=== PATIENT | male | born 1955 | race Caucasian/White ===

== ENCOUNTER 2018-02-07 05:08 | Emergency (ER) | payer OTHER ==
[~2018-02-07] VITALS: Ht 188 cm; Wt 98.0 kg
[2018-02-07] MEDS ORDERED: LISINOPRIL10 MG PO (05:16)
[2018-02-07] MEDS ORDERED: OMEPRAZOLE (05:16)
[2018-02-07 05:26] LABS: URINE BILIRUBIN NEGATIVE (Negative); URINE BLOOD TRACE (Negative); URINE CLARITY CLEAR; URINE COLOR YELLOW; URINE GLUCOSE-RANDOM NEGATIVE (Negative); URINE KETONES NEGATIVE (Negative); URINE LEUKOCYTES-REFLEX NEGATIVE (Negative); URINE NITRITE-REFLEX NEGATIVE (Negative); URINE PROTEIN NEGATIVE (Negative); URINE SPECIFIC GRAVITY >= 1.030 (1.005-1.030); URINE UROBILINOGEN 0.2 E.U./dl (0.2-1.0)
[2018-02-07 05:36] LABS: ABSOLUTE LYMPHOCYTES 1.2 thou/uL (0.8-5.3); ABSOLUTE MONOCYTES 0.3 thou/uL (0.0-1.2); ABSOLUTE NEUTROPHILS 8.7 thou/uL (1.6-8.1); BASOPHILS 0.3 %; EOSINOPHILS 0.1 %; HEMATOCRIT 50.1 % (42.0-52.0); HEMOGLOBIN 16.9 gm/dL (14.0-18.0); LYMPHOCYTES 11.8 %; MCH 31.4 pg (26.0-34.0); MCHC 33.8 g/dL (28.0-37.0); MCV 93.1 fL (80.0-100.0); MONOCYTES 3.3 %; MPV 8.4 fl. (7.2-11.1); NUCLEATED RBCS 0 /100WBC; PLATELET COUNT* 164 thou/uL (150-400); POLYS 84.5 %; RBC 5.38 mil/uL (4.50-6.00); RDW-CV 13.6 % (10.5-14.5); WBC 10.3 thou/uL (4.0-11.0)
[2018-02-07 05:47] LABS: ANION GAP 8 mmol/L (7-16); BUN 17 mg/dL (7-18); CALCIUM 9.6 mg/dL (8.5-10.1); CHLORIDE 105 mmol/L (98-107); CO2 29 mmol/L (21-32); CREATININE 1.3 mg/dL (0.6-1.3); GLUCOSE 181 mg/dL (70-99); POTASSIUM 3.7 mmol/L (3.5-5.1); SODIUM 142 mmol/L (136-145)
[2018-02-07 05:53] LABS: AMP/METHAMP Negative (Negative); BARBITURATES Negative (Negative); BENZODIAZEPINES Negative (Negative); COCAINE Negative (Negative); METHADONE Negative (Negative); OPIATES Negative (Negative); PCP Negative (Negative); THC Negative (Negative)
[2018-02-07 05:53] LABS: ALBUMIN 3.7 g/dL (3.4-5.0); ALKALINE PHOSPHATASE 87 U/L (46-116); LIPASE 75 U/L (73-393); SGOT 19 U/L (15-37); SGPT 38 U/L (30-65); TOTAL BILIRUBIN 0.9 mg/dL (<0.1-1.0); TOTAL PROTEIN 7.4 g/dL (6.4-8.2); TROPONIN-I LEVEL <0.06 ng/mL (<0.06)
[2018-02-07] MEDS ORDERED: CARAFATE 1 GM TA1 GM PO (07:58)
[2018-02-07 08:22] VITALS: BP 159/104
--- NOTE | 2018-02-07 14:25 | EKG ---
[place] [address] ELECTROCARDIOGRAM REPORT Name: GORDON CANTRELL Room: [facility]#: [id number] Admission: 02/07/18 Attend Phys: Discharge: 02/07/18 Date of : 57 Report #: [id number] THIS REPORT FOR: //name// [facility] ED Test Date: 2018-02-07 Test Time: 05:48:05 Pat Name: GORDON CANTRELL Department: Room: Gender: M Photography Intern: ALICIA : 1955 Requested By: Hieu Kirkland Order Number: [id number] MD: Darius Man Measurements Intervals [place] Rate: 44 P: 13 DC: 157 QRS: -41 QRSD: 116 T: 7 QT: 483 QTc: 414 Interpretive Statements Sinus bradycardia Left anterior fascicular block Left ventricular hypertrophy No previous ECG available for comparison Electronically Signed On 02-07-2018 14:25:04 CDT by Darius Man [email or web address] <ELECTRONICALLY SIGNED> By: Darius Man MD, [facility] 02/07/18 1425 0548 0548 Darius Man MD, FACC /EPI
[2018-03-09] MEDS ORDERED: OMEPRAZOLE40 MG PO (12:05)
[2018-03-18] MEDS ORDERED: PERCOCET PO (14:16)
[2018-03-18] MEDS ORDERED: PERCOCET 5-3251 EACH PO (15:30)
== END 2018-02-07 08:22 | disposition home or self-care (01) ==
LOC: M.ERS 05:08
PROVIDERS: Emergency Medicine Emergency Medical Services
DX: K20.9 Esophagitis, unspecified (principal); I10 Essential (primary) hypertension; Z88.1 Allergy status to other antibiotic agents

== ENCOUNTER 2018-02-10 10:08 | Inpatient (IN) | payer OTHER ==
[~2018-02-10] VITALS: Ht 188 cm; Wt 98.0 kg
[~2018-02-10 10:08] MED LIST: CARAFATE 1 GM TA1 GM PO; LISINOPRIL10 MG PO; OMEPRAZOLE
[2018-02-10 10:15] VITALS: BP 135/80
--- NOTE | 2018-02-10 11:53 | EKG ---
[place] [address] ELECTROCARDIOGRAM REPORT Name: GORDON CANTRELL Room: [address] ADM IN M.R.#: [id number] Admission: 02/10/18 Attend Phys: Kendall Enriquez Discharge: Date of : 57 Report #: [id number] THIS REPORT FOR: //name// [facility] Test Date: 2018-02-10 Test Time: 11:18:44 Pat Name: GORDON CANTRELL Department: Room: [address] Gender: M Compliance Manager: 28 : 1955 Requested By: Elvin Flores Order Number: [id number] Reading MD: Walter Beltran Measurements Intervals [place] Rate: 97 P: 37 CO: 141 QRS: -57 QRSD: 99 T: 51 QT: 349 QTc: 444 Interpretive Statements Sinus rhythm Left anterior fascicular block Abnormal R-wave progression, late transition Left ventricular hypertrophy Compared to ECG 02/07/2018 05:48:05 Sinus bradycardia no longer present Electronically Signed On 02-10-2018 11:52:58 CDT by Walter Beltran [email or web address] <ELECTRONICALLY SIGNED> By: Walter Beltran MD, FAC 02/10/18 1152 1118 1118 Walter Beltran MD, FAC /EPI
[2018-02-10 12:26] LABS: HEMATOCRIT 49.1 % (42.0-52.0); HEMOGLOBIN 16.7 gm/dL (14.0-18.0); MCH 31.9 pg (26.0-34.0); MCHC 33.9 g/dL (28.0-37.0); MCV 93.9 fL (80.0-100.0); NUCLEATED RBCS 0 /100WBC; PLATELET COUNT* 153 thou/uL (150-400); RBC 5.23 mil/uL (4.50-6.00); RDW-CV 13.5 % (10.5-14.5); WBC 19.9 thou/uL (4.0-11.0)
[2018-02-10 12:27] LABS: URINE BLOOD TRACE (Negative); URINE CLARITY CLEAR; URINE COLOR YELLOW; URINE GLUCOSE-RANDOM NEGATIVE (Negative); URINE KETONES NEGATIVE (Negative); URINE LEUKOCYTES-REFLEX NEGATIVE (Negative); URINE NITRITE-REFLEX NEGATIVE (Negative); URINE PROTEIN 1+ (Negative); URINE SPECIFIC GRAVITY >= 1.030 (1.005-1.030); URINE UROBILINOGEN 0.2 E.U./dl (0.2-1.0)
[2018-02-10 12:33] LABS: ICTOTEST (BILI CONFIRMATORY) Negative (Negative); URINE BILIRUBIN 1+ (Negative)
[2018-02-10 12:40] LABS: ALBUMIN 3.3 g/dL (3.4-5.0); CALCIUM 9.3 mg/dL (8.5-10.1); CREATININE 1.2 mg/dL (0.6-1.3); MAGNESIUM 2.1 mg/dL (1.8-2.4); POTASSIUM 3.7 mmol/L (3.5-5.1); TOTAL BILIRUBIN 1.7 mg/dL (<0.1-1.0); TOTAL PROTEIN 7.3 g/dL (6.4-8.2)
[2018-02-10 12:51] LABS: ABSOLUTE LYMPHOCYTES 1.4 thou/uL (0.8-5.3); ABSOLUTE MONOCYTES 1.2 thou/uL (0.0-1.2); ABSOLUTE NEUTROPHILS 17.3 thou/uL (1.6-8.1); PLATELET ESTIMATE ADEQUATE
[2018-02-10 16:30] VITALS: BP 140/88
[2018-02-10 17:37] LABS: AMYLASE 17 U/L (25-115); LIPASE 44 U/L (73-393)
--- NOTE | 2018-02-10 18:55 | NUR ---
PT RECEIVED FROM OUTPT SURGERY AT 1015. PT A&O X4, PT IN BED, BED IN LOW LOCKED POSITION. CALL BUTTON AND PERSONAL ITEMS IN PT REACH. FALL PRECAUTIONS IN PLACE. ADMISSION COMPLETED. VSS ON RA, LCTAB, ABD TENDER IN UPPER RIGHT QUADRANT. PT NPO AT MIDNIGHT FOR US OF ABD TOMORROW. CONSULTS GI, CM AND RT. PT COMPLETED AN EGD AND COLONOSCOPY THIS MORNING BUT IS ADMITTED FOR N/V, DEHYDRATION, ABD PAIN, ESOPHAGITIS. RIGHT FA 20 GAUGE IV PATENT WITH LR INFUSING AT 150 ML/HR. PT UP SBA TO BATHROOM. SKIN INTACT, PERRLA, AFEBRILE. K-PAD FOR ABD PAIN IN ROOM WITH PT. HOURLY ROUNDING CONTINUES. REPORT TO JUNIOR ASSISTANT MANAGER FOR CONTINUED CARES. FAMILY AT BEDSIDE.
[2018-02-10 20:10] VITALS: BP 113/62
--- NOTE | 2018-02-11 03:49 | NUR ---
PT IS ALERT AND ORIENTED. VSS. PERRLA. PT REPORTS SOME PAIN IN HIS ABDOMAN. NO NAUSEA REPORTED. PT IS CURRENTLY NPO FOR AN ABDOMANAL US. PT IS SLEEPING QUIETLY IN BED. RESPIRATIONS ARE EVEN AND NONLABORED. WILL CONTINUE TO MONITOR PT.
[2018-02-11 07:50] VITALS: BP 143/95
[2018-02-11 11:55] LABS: HEMATOCRIT 41.7 % (42.0-52.0); MCH 31.4 pg (26.0-34.0); MCHC 33.5 g/dL (28.0-37.0); MCV 93.7 fL (80.0-100.0); MPV 8.2 fl. (7.2-11.1); RBC 4.45 mil/uL (4.50-6.00); RDW-CV 13.7 % (10.5-14.5); WBC 11.6 thou/uL (4.0-11.0)
[2018-02-11 12:13] LABS: ALBUMIN 2.3 g/dL (3.4-5.0); CALCIUM 8.4 mg/dL (8.5-10.1); CREATININE 1.2 mg/dL (0.6-1.3); POTASSIUM 3.7 mmol/L (3.5-5.1); TOTAL PROTEIN 6.2 g/dL (6.4-8.2)
[2018-02-11 16:06] VITALS: BP 125/80
--- NOTE | 2018-02-11 17:18 | NUR ---
SW met with pt to complete initial assessment, introduce self, and SW role. Pt bedside. Pt alert and oriented. Pt lives at home with and does not anticipate any dc needs at this time. Pt said he figures it's "just gallbladder issues" and pt wants to be able to have education on what his dietary needs will be when he is ready to dc. SW to follow.
--- NOTE | 2018-02-11 19:00 | NUR ---
PT VSS STABLE THIS SHIFT. GI CAME TO SEE PT THIS SHIFT AND DISCUSSION OF PLAN OF CARE WAS HAD REGARDING SURGERY, AT THIS TIME IT IS QUESTIONED TO WHEN. PT TOLERATING FENTANYL THIS SHIFT FOR PAIN RELIEF. PT ABLE TO CALL OUT FOR AMBULATION NEEDS, BUT FAMILY IS ABLE TO AMBULATE PT FOR BATHROOM NEEDS THIS SHIFT. PT WILL BE NPO AT MIDNIGHT FOR PROCEDURE TOMORROW.
[2018-02-11 20:00] VITALS: BP 132/80
[2018-02-12 01:07] VITALS: BP 113/70
[2018-02-12 03:51] LABS: HEMATOCRIT 39.8 % (42.0-52.0); HEMOGLOBIN 13.5 gm/dL (14.0-18.0); MCH 31.4 pg (26.0-34.0); MCV 92.4 fL (80.0-100.0); MPV 8.4 fl. (7.2-11.1); RBC 4.3 mil/uL (4.50-6.00); RDW-CV 13.5 % (10.5-14.5)
[2018-02-12 04:24] LABS: ALBUMIN 2.1 g/dL (3.4-5.0); POTASSIUM 3.8 mmol/L (3.5-5.1); TOTAL BILIRUBIN 1.7 mg/dL (<0.1-1.0); TOTAL PROTEIN 5.3 g/dL (6.4-8.2)
--- NOTE | 2018-02-12 05:32 | NUR ---
ASSUMED PT CARE AT 1930, PT IS A&OX4, PT IS ON RA SATTING MID TO HIGH 90'S. PT HAS IVF INFUSING PER MAR. PT C/O PAIN THROUGHOUT THE SHIFT. PRN PAIN AND SLEEPING MEDICATIONS GIVEN PER MAR. PT IS UP WITH ONE TO THE BR, BED IN LOW POSITION, CALL LIGHT IN REACH, HOURLY ROUNDING COMPLETED FOR PT SAFETY.
[2018-02-12 08:00] VITALS: BP 130/80
--- NOTE | 2018-02-12 10:46 | CON ---
[address] [address] CONSULTATION Name: GORDON CANTRELL Room: [address] IN M.R.#: [id number] Admission: 02/10/18 Attend Phys: Kendall Enriquez Discharge: Date of : 57 Report #: [id number] THIS REPORT FOR: //name// CC: Anthony Cain DICTATED BY: Rose Shah [facility] DATE OF SERVICE: 02/10/2018 PRIMARY CARE PHYSICIAN: Krunal Raza DO Please note at the time of this dictation, the patient was seen and physically examined by myself. REASON FOR CONSULTATION: Abdominal pain, nausea and vomiting. HISTORY OF PRESENT ILLNESS: This is a 62-year-old male who has been having ongoing episodes of epigastric pain, esophageal pressure that he has noticed for the last 1-1/2 years that these symptoms have been going on. He describes these episodes last 2-3 hours at a time, sometimes relieved with ibuprofen. He has been noticing that the episodes are in the epigastric area most of the time. The patient underwent an EGD and colonoscopy for these symptoms this a.m. in which was noted to have Schatzki ring, asymptomatic, 2 cm hiatal hernia, mild erosive duodenitis, otherwise normal upper endoscopy. Colonoscopy revealed moderate sigmoid diverticulosis with moderate external hemorrhoids, otherwise normal colon with an average risk of colon cancer. He wished to be continued taking with his omeprazole 40 mg daily. The patient, because of his ongoing abdominal pain and has progressively gotten worse in which he went to the Emergency Room on Wednesday the because he was having increasing abdominal pain that showed some mild mural thickening of the distal esophagus, otherwise diverticulosis, but no other acute findings. No mention of his gallbladder is noted on his CT scan. The patient once he was admitted over here because of his ongoing abdominal pain, which was progressively getting worse to the point that he could not function, it was agreed that he be admitted for further evaluation. ALLERGIES: DOXYCYCLINE AND LEVAQUIN. MEDICATIONS: From home, omeprazole and lisinopril and some Carafate. FAMILY HISTORY: Pancreatic cancer with his father and paternal grandfather. SOCIAL HISTORY: Alcohol socially, tobacco use never [place] [address] CONSULTATION Name: GORDON CANTRELL LINDA Room: [address] IN [facility]#: [id number] Admission: 02/10/18 Attend Phys: Kendall Enriquez Discharge: Date of : 57 Report #: [id number] REVIEW OF SYSTEMS: Twelve-point review of systems is essentially negative except what is mentioned in the HPI. PHYSICAL EXAMINATION: VITAL SIGNS: Temperature 36.9, pulse 96, respirations 21, blood pressure 135/80. HEART: Regular rate and rhythm. LUNGS: Clear. ABDOMEN: Soft, positive bowel sounds in all 4 quadrants with epigastric and right upper quadrant tenderness noted to palpation. LABORATORY DATA: Sodium 142, potassium 3.7, chloride 105, CO2 of 29, BUN is 17, creatinine 1.3, GFR is 56, glucose is 181, total bilirubin is 1.7, alkaline phosphatase is 90, ALT 32, AST is 18. Hemoglobin is 16.9, hematocrit 49.1, white count is 19.9 and platelets are 153. Awaiting imaging ultrasound and PIPIDA. IMPRESSION: 1. Abdominal pain, right upper quadrant and epigastric. 2. Nausea and vomiting. 3. Leukocytosis. 4. Elevated bilirubin. 5. Erosive duodenitis. PLAN: 1. Ultrasound and CCK PIPIDA. 2. Continue omeprazole 40 mg daily. 3. Further recommendations to be made once the above have been performed and reviewed. Thank you for allowing us to participate in this patient's care. Please do not hesitate to call with any questions in regard to this consult. <ELECTRONICALLY SIGNED> By: Anthony Berg DO 02/12/18 1046 1414 2154Anthony Berg DO /nt
--- NOTE | 2018-02-12 10:46 | CON ---
[address] [address] CONSULTATION Name: GORDON CANTRELL Room: [address] IN M.R.#: [id number] Admission: 02/10/18 Attend Phys: Kendall Enriquez Discharge: Date of : 57 Report #: [id number] THIS REPORT FOR: //name// CC: Anthony Springer DO DATE OF SERVICE: 02/10/2018 REFERRING PHYSICIAN: Krunal Raza DO. I have seen and examined the patient and agreed with plan that has been outlined by our nurse practitioner, Rose Shah. HISTORY OF PRESENT ILLNESS: The patient is a pleasant 62-year-old white male who underwent upper and lower endoscopy earlier [facility] for complaints of rather severe abdominal pain associated with nausea, vomiting, and inability to advance his diet as tolerated. He has history of chronic reflux for which he takes pantoprazole with pretty good results for the same. He underwent successful upper and lower endoscopy this morning, which were unrevealing with the exception of some mild erosive duodenitis. Because the patient's inability to take much in with associated nausea, vomiting and inability to advance clear liquids, I recommend that the patient be admitted to the hospital to undergo an abdominal ultrasound, possible CCK PIPIDA scan and we will make further recommendations thereafter. I also discussed that he will need to be placed on IV pain medications, antiemetics, etc. I discussed this plan with the patient as well and he and his were agreeable to the admission. <ELECTRONICALLY SIGNED> By: Anthony Berg DO 02/12/18 1046 1513 0116Anthony Berg DO /nt
[2018-02-12 14:25] LABS: ABSOLUTE EOSINOPHILS 0.2 thou/uL (0.0-0.7); ABSOLUTE LYMPHOCYTES 1.3 thou/uL (0.8-5.3); ABSOLUTE MONOCYTES 0.7 thou/uL (0.0-1.2); BASOPHILS 0.4 %; EOSINOPHILS 1.8 %; HEMOGLOBIN 13.7 gm/dL (14.0-18.0); LYMPHOCYTES 14.3 %; MCH 32.1 pg (26.0-34.0); MCHC 34.2 g/dL (28.0-37.0); MCV 93.9 fL (80.0-100.0); MONOCYTES 7.8 %; MPV 8.6 fl. (7.2-11.1); NUCLEATED RBCS 0 /100WBC; PLATELET COUNT* 156 thou/uL (150-400); POLYS 75.7 %; RBC 4.26 mil/uL (4.50-6.00); RDW-CV 13.2 % (10.5-14.5); WBC 9.2 thou/uL (4.0-11.0)
[2018-02-12 14:38] LABS: ALBUMIN 2.2 g/dL (3.4-5.0); CALCIUM 8.5 mg/dL (8.5-10.1); CREATININE 1.1 mg/dL (0.6-1.3); POTASSIUM 3.5 mmol/L (3.5-5.1); TOTAL BILIRUBIN 1.7 mg/dL (<0.1-1.0); TOTAL PROTEIN 6.3 g/dL (6.4-8.2)
[2018-02-12 16:00] VITALS: BP 163/98
[2018-02-12 20:00] VITALS: BP 127/80
--- NOTE | 2018-02-12 21:00 | NUR ---
I ASSUMED CARE OF THE PATIENT AT 0700. HE IS ALERT AND ORIENTED X4 AND IS UP WITH STAND BY ASSIST. IS AT THE BEDSIDE. HOURLY ROUNDING WAS DONE AND PATIENT NEEDS WERE MET. CALL LIGHT IS IN REACH. BED IS IN THE LOW LOCKED POSITION. PAIN IS MANAGED WITH PRN MEDS. PATIENT HAD A SHOWER AND LINENS WERE CHANGED. MRCP WAS COMPLETED AND RESULTS WERE CALLED TO DR GUILLEN AND NEW ORDERS WERE RECEIVED. WILL CONTINUE TO MONITOR. MOST LIKELY, SURGERY WILL BE DONE ON WEDNESDAY. THEY WILL RE-EVALUATE IN THE MORNING WHILE ROUNDING. CALL DR GUILLEN IF YOU NEED ANYTHING.
--- NOTE | 2018-02-13 04:40 | NUR ---
PATIENT HAS REMAINED ALERT AND ORIENTED X 4 THROUGHOUT THE SHIFT. RESTING QUIETLY ON HOURLY ROUNDS. CLEAR LIQUIDS TO MIDNIGHT. TOLERATED WITHOUT NAUSEA. MEDICATED FOR PAIN X 2 TO GOOD EFFECT. IVF'S AND ANTIBIOTICS PER ORDERS. LOW-GRADE TEMP OF 100.0 DEGREES F. NPO AT MIDNIGHT. AT BEDSIDE. CONTINUE TO MONITOR.
[2018-02-13 05:08] LABS: ABSOLUTE EOSINOPHILS 0.2 thou/uL (0.0-0.7); ABSOLUTE LYMPHOCYTES 1.8 thou/uL (0.8-5.3); ABSOLUTE MONOCYTES 0.8 thou/uL (0.0-1.2); ABSOLUTE NEUTROPHILS 6.9 thou/uL (1.6-8.1); BASOPHILS 0.4 %; EOSINOPHILS 2.1 %; HEMATOCRIT 39.5 % (42.0-52.0); HEMOGLOBIN 13.3 gm/dL (14.0-18.0); LYMPHOCYTES 18.5 %; MCH 31.7 pg (26.0-34.0); MCHC 33.7 g/dL (28.0-37.0); MCV 93.8 fL (80.0-100.0); MPV 8.8 fl. (7.2-11.1); NUCLEATED RBCS 0 /100WBC; PLATELET COUNT* 173 thou/uL (150-400); RBC 4.21 mil/uL (4.50-6.00); RDW-CV 13.2 % (10.5-14.5); WBC 9.7 thou/uL (4.0-11.0)
[2018-02-13 05:09] LABS: ALBUMIN 2.2 g/dL (3.4-5.0); CALCIUM 8.1 mg/dL (8.5-10.1); POTASSIUM 3.9 mmol/L (3.5-5.1); TOTAL BILIRUBIN 1.9 mg/dL (<0.1-1.0); TOTAL PROTEIN 5.5 g/dL (6.4-8.2)
[2018-02-13 07:35] VITALS: BP 118/62
[2018-02-13 16:00] VITALS: BP 119/78
--- NOTE | 2018-02-13 17:05 | NUR ---
PATIENT REMAINS ALERT AND ORIENTED. PAIN CONTROLLED WITH PERCOCET. RASH AFTER HYDROCODONE THIS AM, BENADRYL GIVEN AND EFFECTIVE. AMBULATES AD YOLANDA. IVF INFUSING ORDERED. TOLERATING SOFT DIET. WILL BE NPO AFTER MIDNIGHT FOR IR PROCEDURE TOMORROW. CALL LIGHT WITHIN REACH. WILL CONTINUE TO MONITOR.
[2018-02-13 19:50] VITALS: BP 136/88
--- NOTE | 2018-02-14 04:54 | NUR ---
PATIENT HAS REMAINED ALERT AND ORIENTED X 4 THROUGHOUT THE SHIFT AND RESTING QUIETLY ON HOURLY ROUNDS. MEDICATED WITH ORAL PAIN MEDICATION X 2 TO GOOD EFFECT. ALSO PROVIDED BENADRYL X 1 FOR RESIDUAL ITCHING RASH FROM EAR[place]ER IN THE DAY REACTION TO HYDROCODONE? NO OTHER SIGNS/SYMPTOMS OF ALLERGIC REACTION. PATIENT REPORTING POSITIVE BM OVERNIGHT AND PASSING GAS. DENIES NAUSEA. IVF'S AND ANTIBIOTICS PER ORDERS. AFEBRILE THIS SHIFT. VITAL SIGNS STABLE. NPO AT MIDNIGHT FOR POSSIBLE IR PROCEDURE TODAY. CONTINUE TO MONITOR.
[2018-02-14 05:05] LABS: HEMATOCRIT 38.1 % (42.0-52.0); HEMOGLOBIN 12.7 gm/dL (14.0-18.0); MCH 31.4 pg (26.0-34.0); MCHC 33.4 g/dL (28.0-37.0); MCV 94.2 fL (80.0-100.0); MPV 8.5 fl. (7.2-11.1); RBC 4.04 mil/uL (4.50-6.00); RDW-CV 13.1 % (10.5-14.5); WBC 8.9 thou/uL (4.0-11.0)
[2018-02-14 05:21] LABS: ALBUMIN 2.1 g/dL (3.4-5.0); CALCIUM 8.3 mg/dL (8.5-10.1); CREATININE 1.1 mg/dL (0.6-1.3); POTASSIUM 3.7 mmol/L (3.5-5.1); TOTAL BILIRUBIN 1.3 mg/dL (<0.1-1.0); TOTAL PROTEIN 6.1 g/dL (6.4-8.2)
[2018-02-14 08:44] VITALS: BP 124/68
[2018-02-14 16:00] VITALS: BP 116/60
--- NOTE | 2018-02-14 16:37 | NUR ---
PATIENT REMAINS ALERT AND ORIENTED. PAIN CONTORLLED WITH PO MEDS. AMBULATES AD YOLANDA. IVF INFUSING ORDERD. ZOSYN EVERY 8 HOURS. TOLERATING SOFT DIET. AT BEDSIDE. PER DR. CHAVIRA IR PHYSICIAN DID NOT FEEL ABSCESS DRAIN WAS NECESSARY AT THIS TIME. CALL LIGHT WITHIN REACH. WILL CONTINUE TO MONITOR.
[2018-02-14 20:45] VITALS: BP 123/79
--- NOTE | 2018-02-15 04:31 | NUR ---
PATIENT ALERT AND ORIENTED X 4. VITALS STALE. RA. PAIN CONTROLLED WITH PO MEDICATION. DENIES NAUSEA. UP INDEPENDENTLY. REPORTS SMALL BOWEL MOVEMENT LAST NIGHT. HOURLY ROUNDS. INSTRUCTED TO CALL FOR ASSISTANCE. NURSING WILL CONTINUE TO MONITOR.
[2018-02-15 04:33] LABS: HEMATOCRIT 38.5 % (42.0-52.0); HEMOGLOBIN 12.8 gm/dL (14.0-18.0); MCH 31.3 pg (26.0-34.0); MCHC 33.2 g/dL (28.0-37.0); MCV 94.3 fL (80.0-100.0); MPV 8.5 fl. (7.2-11.1); RBC 4.08 mil/uL (4.50-6.00); WBC 8.1 thou/uL (4.0-11.0)
[2018-02-15 04:55] LABS: ALBUMIN 2.1 g/dL (3.4-5.0); CALCIUM 8.4 mg/dL (8.5-10.1); POTASSIUM 3.6 mmol/L (3.5-5.1); TOTAL BILIRUBIN 0.8 mg/dL (<0.1-1.0); TOTAL PROTEIN 6.1 g/dL (6.4-8.2)
--- NOTE | 2018-02-15 08:08 | CON ---
[address] [address] CONSULTATION Name: GORDON CANTRELL Room: [address] IN M.R.#: [id number] Admission: 02/10/18 Attend Phys: Kendall Enriquez Discharge: Date of : 57 Report #: [id number] THIS REPORT FOR: //name// CC: Anthony Flores DATE OF SERVICE: 02/14/2018 INFECTIOUS DISEASE CONSULTATION ATTENDING PHYSICIAN: Dr. Flores. REASON FOR EVALUATION: Acute cholecystitis complicated by pericholecystic abscess. HISTORY OF PRESENT ILLNESS: Chart reviewed, patient examined. This is a 62-year-old with history of hypertension, otherwise fairly unremarkable, who was evaluated on 02/07/2018 with complaints of epigastric-type pain. This was felt to be secondary to some esophagitis. He was treated medically and he was reevaluated on roughly 02/10/2018. He was admitted and has undergone several imaging studies. Ultrasound raised question of acute cholecystitis. MRCP was confirmatory as well as probable abscess. He is undergoing empiric antimicrobial therapy with piperacillin and tazobactam. He is in moderate distress at this point pending surgical further decision, does admit to some degree of difficulty with breathing in terms of pain, but has developed a papular-type eruption limited to his back. This looks consistent with folliculitis. He has a suspicion of hydrocodone as being medicine hypersensitivity. He is not encephalopathic. ALLERGIES: HYDROCODONE, PREVIOUSLY DIAGNOSED WITH DOXYCYCLINE AND LEVOFLOXACIN OVER THE LAST YEAR. CURRENT MEDICATIONS: Include diphenhydramine, oxycodone, fentanyl, Zosyn, docusate sodium, ondansetron, pantoprazole, zolpidem. PAST MEDICAL HISTORY: Hypertension. SOCIAL HISTORY: Nonsmoker, no ethanol, no illicit drug use. FAMILY HISTORY: Noncontributory. REVIEW OF SYSTEMS: As above. PHYSICAL EXAMINATION: GENERAL: He is alert, in mild distress at this point. He is lucid, [place] [address] CONSULTATION Name: GERRYLOPEZGORDON Room: [address]#: [id number] Admission: 02/10/18 Attend Phys: Kendall Enriquez Discharge: Date of : 57 Report #: [id number] somewhat chronically ill. VITAL SIGNS: Temperature 97.9, pulse 70, respirations 19, blood pressure 124/68. SKIN: Warm, dry, no rashes. HEENT: Otherwise, unremarkable. NECK: Supple. LUNGS: Clear breath sounds. HEART: Regular. I do not appreciate a murmur. ABDOMEN: Mildly distended, soft. There are no overt peritoneal signs. GENITOURINARY AND RECTAL: Deferred. LABORATORY DATA: Most recent electrolytes: Sodium 137, potassium 3.7, chloride 104, bicarbonate is 28, BUN and creatinine 7 and 1.1, anion gap of 5, glucose of 95. LFTs unremarkable with the exception of borderline elevated total bilirubin of 1.3, alkaline phosphatase of 151. Total protein 6.1. Albumin of 3.1, estimated GFR of 68. Prealbumin of 10.9. CBC: White count of 8.9, H and H 12.7 and 38.1, platelets of 186. MRCP, severe cholecystitis with adjacent multiloculated fluid collection measuring 7.1 x 1.8 cm suspicious for abscess. No evidence of choledocholithiasis or biliary obstruction. Blood cultures sterile thus far. ASSESSMENT AND PLAN: Severe cholecystitis with possible abscess as well. Pending surgery evaluation, possible percutaneous drainage. We will continue empiric antimicrobial therapy at this point. He is not overtly toxic. He will, I suspect, need some sort of intervention prior to discharge and likely, we will transition to oral antibiotics at that point, discuss with surgery. <ELECTRONICALLY SIGNED> By: Darvin Pyle MD 02/15/18 0808 0918 1935Jodieudonne Pyle MD /nt
--- NOTE | 2018-02-15 08:15 | NUR ---
RECIEVED REPORT. ASSUMED CARE OF PT AT 0730. VSS. PT ALERT AND ORIENTED X4. PT AMBULATING IN HALLWAY THIS AM. PT ON RA. IVF INFUSING PER OERDERS. PT DNEIES ANY PAIN THIS AM. PT REPORTS BM THIS AM. PT TOLERATED BREAKFAST. DISCUSSED PLAN OF CARE WITH PT AND SPOUSE AND POSSIBLE DISCHARGE TODAY. PT AND SPOUSE COMMUNICATE UNDERSTANDING. CALL LIGHT IS WITHIN REACH. WILL CONTINUE TO MONITOR FOR DURAITON OF SHIFT.
[2018-02-15 08:30] VITALS: BP 145/88
[2018-02-15] MEDS ORDERED: COLACE100 MG PO (11:06)
[2018-02-15] MEDS ORDERED: PERCOCET PO (11:11)
[2018-02-15] MEDS ORDERED: FLAGYL500 MG PO (11:12)
[2018-02-15] MEDS ORDERED: LEVAQUIN 750 M750 MG PO (11:13)
[2018-02-15] MEDS ORDERED: PROTONIX40 M1 PO (11:14)
[2018-02-15] MEDS ORDERED: TYLENOL325 MG PO (11:15)
[2018-02-15] MEDS ORDERED: FLORASTOR250 MG PO (11:16)
[2018-02-15 11:17] VITALS: BP 145/88
--- NOTE | 2018-02-15 13:29 | NUR ---
DISCHARGE ORDERS RECEIVED AND PREPARED. IV DISCONTINUED. PT AND SPOUSE EDUCATED ON DISCHARGE INSTRCUTIONS. ALL QUESTIONS AND CONERNS ANSWERED AT THIS TIME. PT GIVEN COPY OF DISCHARGE PAPERWORK, SCRIPTS, AND PATIENT EDUCATION INFORMATION. PT'S PERSONAL BELONGINGS GATHERED AND SENT HOME WITH PT. PT ESCORTED OFF UNIT. PT LEFT IN PRIVATE VEHICLE.
[2018-03-09] MEDS ORDERED: OMEPRAZOLE40 MG PO (12:05)
[2018-03-18] MEDS ORDERED: PERCOCET PO (14:16)
[2018-03-18] MEDS ORDERED: PERCOCET 5-3251 EACH PO (15:30)
== END 2018-02-15 14:02 | disposition home or self-care (01) | DRG 444 ==
LOC: M.ORTHSURG 10:08
PROVIDERS: Internal Medicine Gastroenterology; Nurse Practitioner Adult Health; Surgery; ADMIT Internal Medicine
DX: K81.0 Acute cholecystitis (principal); K75.0 Abscess of liver; D72.829 Elevated white blood cell count, unspecified; K29.80 Duodenitis without bleeding; I10 Essential (primary) hypertension; K20.9 Esophagitis, unspecified; K22.2 Esophageal obstruction; K44.9 Diaphragmatic hernia without obstruction or gangrene; K57.90 Diverticulosis of intestine, part unspecified, without perforation or abscess without bleeding; K21.9 Gastro-esophageal reflux disease without esophagitis; Z88.8 Allergy status to other drugs, medicaments and biological substances; Z79.899 Other long term (current) drug therapy

== ENCOUNTER → 2018-03-18 | Day surgery (SDC) | payer OTHER ==
[~2018-03-18] VITALS: Ht 188 cm; Wt 89.8 kg
[~2018-03-18] MED LIST changes: +COLACE100 MG PO; +FLAGYL500 MG PO; +FLORASTOR250 MG PO; +LEVAQUIN 750 M750 MG PO; +OMEPRAZOLE40 MG PO; +PERCOCET 5-3251 EACH PO; +PERCOCET PO; +PROTONIX40 M1 PO; +TYLENOL325 MG PO
[2018-03-18 10:40] VITALS: BP 126/77
[2018-03-18 11:14] LABS: HEMATOCRIT 46.3 % (42.0-52.0); HEMOGLOBIN 15.9 gm/dL (14.0-18.0); MCH 31.5 pg (26.0-34.0); MCHC 34.2 g/dL (28.0-37.0); MCV 92.1 fL (80.0-100.0); MPV 8.2 fl. (7.2-11.1); RBC 5.03 mil/uL (4.50-6.00); RDW-CV 13.8 % (10.5-14.5); WBC 6.3 thou/uL (4.0-11.0)
[2018-03-18 11:22] LABS: POTASSIUM 4.5 mmol/L (3.5-5.1)
[2018-03-18 11:26] LABS: ALBUMIN 3.2 g/dL (3.4-5.0); TOTAL PROTEIN 6.8 g/dL (6.4-8.2)
--- NOTE | 2018-03-18 12:15 | EKG ---
[place] [address] ELECTROCARDIOGRAM REPORT Name: GORDON CANTRELL Room: [facility]#: [id number] Admission: 03/18/18 Attend Phys: Kendall Enriquez Discharge: Date of : 57 Report #: [id number] THIS REPORT FOR: //name// [facility] Test Date: 2018-03-18 Test Time: 11:01:12 Pat Name: GORDON CANTRELL Department: Room: Gender: M Front End Application Developer: : 1955 Requested By: Ava Yao Order Number: [id number] Brigitte MD: Jim Tan Measurements Intervals [place] Rate: 65 P: 15 MT: 164 QRS: -56 QRSD: 99 T: 32 QT: 415 QTc: 432 Interpretive Statements Sinus rhythm Left anterior fascicular block Abnormal R-wave progression, late transition Compared to ECG 02/10/2018 11:18:44 Left ventricular hypertrophy no longer present Electronically Signed On 03-18-2018 12:14:54 CDT by Jim Tan [email or web address] <ELECTRONICALLY SIGNED> By: Jim Tan MD, FAC 03/18/18 1214 1101 1101 Jim Tan MD, [facility] /EPI
[2018-03-18 16:02] VITALS: BP 126/77
[2018-03-18 16:14] VITALS: BP 126/77
--- NOTE | 2018-03-22 14:41 | OP ---
[address] [address] OPERATIVE REPORT Name: GORDON CANTRELL Room: [facility].#: [id number] Admission: 03/18/18 Attend Phys: Kendall Enriquez Discharge: Date of : 57 Report #: [id number] THIS REPORT FOR: //name// CC: Ava Cain DICTATED BY: Charles Florian DO PREOPERATIVE DIAGNOSES: Gallstone pancreatitis, chronic cholecystitis, liver abscess. POSTOPERATIVE DIAGNOSES: Gallstone pancreatitis, chronic cholecystitis, liver abscess. SURGEONS: Ava Yao DO and Charles Florian DO, PGY-1 SCHEDULE SUPERVISOR: Maynor Gorman, PGY-3 OPERATION PERFORMED: Laparoscopic cholecystectomy. FINDINGS: Gallstone pancreatitis, chronic cholecystitis, liver abscess. ANESTHESIA: General and local. ESTIMATED BLOOD LOSS: 5. SPECIMENS REMOVED: Gallbladder. COMPLICATIONS: None. DISPOSITION: PACU to home. HISTORY OF PRESENT ILLNESS: The patient is a pleasant 62-year-old male who is undergoing laparoscopic cholecystectomy after a recent hospitalization for acute cholecystitis and liver abscess. He was admitted for several days, requiring IV antibiotics and subsequently discharged with plans for interval lap benji. Once he improved, he finished the entire course of his p.o. antibiotics upon discharge. Risks and complications of laparoscopic cholecystectomy were discussed to include bleeding, infection, injury to surrounding structures, possible need for open procedure, possible drain placement, and potential injury to bile ducts requiring transfer, and risk of anesthesia. He acknowledged his understanding of all the risks and complications and agreed to proceed with surgery. Consent was obtained. DESCRIPTION OF PROCEDURE: The patient was given 2 grams of Ancef prior to a [facility] [address] [facility]. [place] [id number] OPERATIVE REPORT Name: GORDON CANTRELL Room: [facility]#: [id number] Admission: 03/18/18 Attend Phys: Kendall Enriquez Discharge: Date of : 57 Report #: [id number] surgical procedure, taken to the operating room and placed in the supine position after consent was obtained and general anesthesia was administered without complication. Intubation was performed. SCDs were applied to both bilateral lower extremities and the patient was then prepped and draped in the usual sterile fashion. Timeout was performed to confirm the patient and procedure. Local anesthesia was then injected into the infraumbilical subcutaneous tissue. A 11 blade scalpel was used to make an incision just below the umbilicus in a vertical fashion. Cautery was used to dissect through the subcutaneous tissues. S retractors were used to bluntly dissect down to the level of the fascia. Fascia was grasped between 2 Kochers and elevated. The fascia was then scored with electrocautery. Hemostat was used to bluntly enter into the abdomen and a finger sweep was used to ensure no abdominal contents underneath the incision. The 0 Vicryl stitches were placed on either side of the fascia and a 5 mm trocar was then placed infraumbilical. Insufflation was initiated successfully. A 10 mm Mehran trocar was placed subxiphoid under direct visualization. Two more 5 mm trocars were placed in the right upper quadrant under direct visualization. Upon inspection of the abdomen, extensive adhesions were noted in the right upper quadrant from the liver to the anterior abdominal wall and also from the gallbladder to the liver. The gallbladder could easily be seen underneath the edge of the liver and acute on chronic cholecystitis was evident. The gallbladder was then elevated and blunt dissection was used to help isolate the cystic duct and the cystic artery. Critical view was obtained at this time and it was easy to see that the artery was going into the gallbladder and the cystic duct was going into the gallbladder. The common bile duct could be seen away from our plane of dissection. Two clips were placed distal and proximal on the artery and 3 clips were placed distal and 2 clips proximal on the duct. Duct and artery both cut using scissors. Hemostasis was ensured at this time. The gallbladder was then dissected off the liver bed using electrocautery. After the gallbladder was dissected off the liver, the liver bed was inspected carefully and hemostasis was ensured with electrocautery. The gallbladder was then placed in a laparoscopic EndoCatch bag and the gallbladder fossa was irrigated copiously and the fluid was suctioned. Surgicel was then placed into the gallbladder fossa to ensure further hemostasis. Adhesions from the anterior abdominal wall to the liver were then taken down. Insufflation was let down slowly and the operative field was inspected for hemostasis. After hemostasis was ensured, the laparoscopic trocars were removed and port sites were inspected carefully for hemostasis. Once hemostasis was assured, insufflation was completely evacuated from the abdomen and the trocars and gallbladder in the EndoCatch bag were removed from the abdomen. All port sites were then closed with 4-0 Monocryl and sterile dressings were applied over top. The patient tolerated the procedure well. He was awoken from anesthesia without any complication [place] [address] OPERATIVE REPORT Name: GORDON CANTRELL Room: [facility]#: [id number] Admission: 03/18/18 Attend Phys: Kendall Enriquez Discharge: Date of : 57 Report #: [id number] PACU in stable condition. All instrument counts were correct, all sponge counts were correct and all needle counts were correct at the end of this case. <ELECTRONICALLY SIGNED> By: Ava Yao DO 03/22/18 1441 1436 1523Cpriyank Yao DO /segun
== END | disposition home or self-care (01) ==
LOC: M.SUR 10:25
PROVIDERS: Surgery
DX: K80.10 Calculus of gallbladder with chronic cholecystitis without obstruction (principal); K85.10 Biliary acute pancreatitis without necrosis or infection; K75.0 Abscess of liver; I10 Essential (primary) hypertension; K21.9 Gastro-esophageal reflux disease without esophagitis; Z98.890 Other specified postprocedural states; Z79.899 Other long term (current) drug therapy; Z88.8 Allergy status to other drugs, medicaments and biological substances; Z79.891 Long term (current) use of opiate analgesic